=== PATIENT | female | born 1960 | race Asian ===

== ENCOUNTER 2018-03-29 14:21 | Emergency (ER) | payer OTHER ==
[~2018-03-29] VITALS: Ht 157.5 cm; Wt 58.2 kg
[2018-03-29 14:59] VITALS: BP 97/69
--- NOTE | 2018-03-29 15:07 | NUR ---
PT AMBULATES TO CHAIR E, REPORT GIVEN TO DANYELLE RODARTE
--- NOTE | 2018-03-29 15:22 | NUR ---
PATIENT PRESENTS TO ED WITH COMPLAINTS OF SEVERE ABDOMINAL PAIN, N/V/D. PATIENT REPORTS SYMPTOMS STARTED 2 DAYS AGO. SHE ATE RAW SUSHI AND OYSTERS OVER THE WEEKEND. SKIN IS PINK/WARM/DRY; AAOX4 WITH EVEN AND STEADY GAIT; LUNGS CLEAR BL; HR EVEN AND REGULAR; PT DENIES ANY FEVER, CP, SOB, OR COUGH AT THIS TIME; PATIENT STATES PAIN OF 8/10 AT THIS TIME; VSS; PATIENT POSITIONED FOR COMFORT; HOB ELEVATED; BEDRAILS UP X1; BED DOWN. ER MD MADE AWARE OF PT STATUS.
[2018-03-29] MEDS ORDERED: NACL 0.9% 2,000 ML IV ONE (15:55)
[2018-03-29] MEDS ORDERED: ONDANSETRON 4 MG/2 ML VIAL IVP ONE (15:55)
[2018-03-29] MEDS ORDERED: MORPHINE SULFATE 4 MG/ML SYR IVP ONE (15:55)
[2018-03-29 16:59] LABS: BASOPHILS % (AUTO) 0.4 % (0.0-2.0); EOSINOPHILS % (AUTO) 0.3 % (0.0-4.0); HEMATOCRIT 41.9 % (36-48); HEMOGLOBIN 14.1 g/dL (12.0-16.0); LYMPHOCYTES # (AUTO) 0.5 K/uL (2.5-16.5); LYMPHOCYTES % (AUTO) 7.1 % (20.5-51.1); MEAN CORPUSCULAR HEMOGLOBIN 29 pg (27-31); MEAN CORPUSCULAR HGB CONC 34 g/dL (33-37); MEAN CORPUSCULAR VOLUME 86.6 fL (80-94); MONOCYTES # (AUTO) 0.4 K/uL (0.8-1.0); MONOCYTES % (AUTO) 5.3 % (1.7-9.3); NEUTROPHILS # (AUTO) 5.9 K/uL (1.8-7.7); NEUTROPHILS % (AUTO) 86.9 % (42.2-75.2); PLATELET COUNT (AUTO) 230 K/uL (140-450); RED BLOOD CELL COUNT(AUTO) 4.83 MIL/uL (4.20-5.40); RED CELL DISTRIBUTION WIDTH 13.5 % (11.6-13.7); WHITE BLOOD COUNT (AUTO) 6.8 K/uL (4.8-10.8)
[2018-03-29 17:03] LABS: BILIRUBIN,URINE NEGATIVE (NEGATIVE); BLOOD, URINE NEGATIVE (NEGATIVE); COLOR,URINE YELLOW (YELLOW); LEUKOCYTE ESTERASE ,URINE 1+ (NEGATIVE); NITRITE, URINE NEGATIVE (NEGATIVE); UGLUCOSE NEGATIVE (NEGATIVE)
[2018-03-29 17:08] LABS: APPEARANCE,URINE HAZY (CLEAR)
[2018-03-29 17:24] LABS: ANION GAP 11.8 (8-16); CARBON DIOXIDE 30.1 mmol/L (21-32); CREATININE 0.8 mg/dL (0.6-1.3); POTASSIUM 3.9 mmol/L (3.5-5.1); TOTAL BILIRUBIN 0.7 mg/dL (0.0-1.0)
[2018-03-29 17:24] LABS: RBC,URINE NONE SEEN /HPF (0-5)
--- NOTE | 2018-03-29 17:30 | NUR ---
Patient appears to be resting comfortably in bed. Vital Signs within normal limits. Respirations even and unlabored.
--- NOTE | 2018-03-29 18:00 | NUR ---
Patient discharged with v/s stable. Written and verbal after care instructions given and explained. Patient alert, oriented and verbalized understanding of instructions. Ambulatory with steady gait. All questions addressed prior to discharge. ID band removed. Patient advised to follow up with PMD. Rx of ZOFRAN AND IMODIUM given. Patient educated on indication of medication including possible reaction and side effects. Opportunity to ask questions provided and answered.
[2018-03-29 18:07] VITALS: BP 101/67
== END 2018-03-29 18:00 | disposition home or self-care (01) ==
LOC: MED 14:21
DX: A08.4 Viral intestinal infection, unspecified (principal); K21.9 Gastro-esophageal reflux disease without esophagitis
CPT/HCPCS: 36415; 80053; 81001; 83690; 85025; 87086; 96361; 96374; 96375; 99285; J2270; J2405; J7030

== ENCOUNTER 2021-11-10 13:52 | Emergency (ER) | payer OTHER ==
[~2021-11-10] VITALS: Ht 157.5 cm; Wt 54.4 kg
[2021-11-10 14:03] VITALS: BP 126/64
--- NOTE | 2021-11-10 14:15 | NUR ---
TENT 1
[2021-11-10] MEDS ORDERED: ROB PO (17:56)
[2021-11-10] MEDS ORDERED: ACET-10509 PO (17:56)
[2021-11-10] MEDS ORDERED: IBUP-1842 PO (17:56)
--- NOTE | 2021-11-10 18:10 | NUR ---
PATIENT NO WHERE IN LOBBY OR TENT. CALLED AND SPOKE WITH PATIENT OVER THE PHONE AND INFORMED HAVE DISCHARGE PAPERWORK READY. PER PATIENT "SHE DOES NOT NEED HER PAPERWORK, SHE IS HOME ALREADY."
--- NOTE | 2021-11-10 18:10 | NUR ---
PATIENT LEFT WITHOUT D/C PAPERWORK Patient discharged with v/s stable. Written and verbal after care instructions given and explained. Patient alert, oriented and verbalized understanding of instructions. Ambulatory with steady gait. All questions addressed prior to discharge. ID band removed. Patient advised to follow up with PMD. Rx of IBUPROFEN, ROBITUSSIN, TYLENOL given. Patient educated on indication of medication including possible reaction and side effects. Opportunity to ask questions provided and answered.
== END 2021-11-10 18:10 | disposition home or self-care (01) ==
LOC: MED 13:52
DX: U07.1 COVID-19 (principal); K21.9 Gastro-esophageal reflux disease without esophagitis
CPT/HCPCS: 99282